=== PATIENT | male | born 1940 | race Native Hawaiian/Other Pacific Islander ===

== ENCOUNTER 2021-04-07 13:28 | Emergency (ER) | payer OTHER ==
[~2021-04-07] VITALS: Ht 177.8 cm; Wt 64.9 kg
[2021-04-07 13:46] VITALS: TEMP 98.7
[2021-04-07 15:02] VITALS: BP 148/82
== END 2021-04-07 15:04 | disposition home or self-care (01) ==
LOC: ED 13:28
DX: J32.8 Other chronic sinusitis (principal); R51.9 Headache, unspecified
CPT/HCPCS: 99283